=== PATIENT | male | born 1995 | race American Indian/Alaskan Native ===

== ENCOUNTER 2020-11-09 20:17 | Emergency (ER) | payer SELFPAY ==
[2020-11-09] MEDS ORDERED: IBUPROFEN 600 MG TAB PO ONE (22:20)
[2020-11-09] MEDS ORDERED: ACETAMINOPHEN 325 MG TAB PO ONE (22:20)
--- NOTE | 2020-11-09 22:48 | Emergency Department Report ---
- General Chief Complaint: Weakness Stated Complaint: FREQUENT BODY TEMP CHANGE HOT TO COLD Time Seen by Provider: 11/09/20 22:11 Source: patient Mode of arrival: Ambulatory Limitations: No Limitations - History of Present Illness Initial Comments: 25-year-old male who reports no significant past medical history presents to the ER today complaining of flulike/Covid-like symptoms. Patient states that his symptoms started about a day ago. He reports chills, subjective fever, generalized body aches and intermittent cough as well as intermittent wheezing. He denies any shortness of breath, chest pain, runny nose, nasal congestion, sore throat, vomiting, diarrhea, abdominal pain or UTI symptoms. He denies any known ill contacts or known COVID-19 contacts. He has not gotten a COVID 19 test since he has been sick. He did not get COVID 19 vaccine. Complaint: cough, other (Generalized body aches, chills, subjective fever) -: Gradual, days(s) (1) - Related Data Previous Rx's Medication Instructions Recorded Last Taken Type Ibuprofen [Motrin] 800 mg PO Q8HR PRN #30 tablet 11/09/20 Unknown Rx Allergies Allergy/AdvReac Type Severity Reaction Status Date / Time No Known Allergies Allergy Verified 11/09/20 21:49 ED Review of Systems ROS: Stated complaint: FREQUENT BODY TEMP CHANGE HOT TO COLD Other details as noted in HPI Comment: All other systems reviewed and negative Constitutional: chills, fever ENT: denies: throat pain, dental pain, hearing loss, epistaxis, congestion Respiratory: cough, wheezing. denies: shortness of breath, SOB with exertion, SOB at rest Cardiovascular: denies: chest pain, palpitations Endocrine: no symptoms reported Gastrointestinal: denies: abdominal pain, nausea, diarrhea, constipation, hematemesis, melena, hematochezia Genitourinary: denies: urgency, dysuria, frequency, hematuria, discharge, testicular pain, testicular mass Musculoskeletal: denies: back pain, joint swelling, arthralgia Skin: denies: rash, lesions, change in color, change in hair/nails, pruritus Neurological: denies: headache, weakness, numbness, paresthesias, confusion, abnormal gait, vertigo Psychiatric: denies: anxiety, depression, auditory hallucinations, visual hallucinations, homicidal thoughts, suicidal thoughts Hematological/Lymphatic: denies: easy bleeding, swollen glands ED Past Medical Hx - Past Medical History Previous Medical History?: No - Medications Home Medications: Home Medications Medication Instructions Recorded Confirmed Last Taken Type Ibuprofen [Motrin] 800 mg PO Q8HR PRN #30 tablet 11/09/20 Unknown Rx ED Physical Exam - General Limitations: No Limitations General appearance: alert, in no apparent distress, obese - Head Head exam: Present: atraumatic, normocephalic - Eye Eye exam: Present: normal appearance, PERRL, EOMI Pupils: Present: normal accommodation - ENT ENT exam: Present: normal exam, mucous membranes moist, TM's normal bilaterally - Neck Neck exam: Present: normal inspection, full ROM. Absent: meningismus - Respiratory Respiratory exam: Present: normal lung sounds bilaterally. Absent: respiratory distress, wheezes, rales, rhonchi - Cardiovascular Cardiovascular Exam: Present: regular rate, normal rhythm, normal heart sounds - Neurological Exam Neurological exam: Present: alert, oriented X3, CN II-XII intact, normal gait - Psychiatric Psychiatric exam: Present: normal affect, normal mood - Skin Skin exam: Present: intact ED Course Vital Signs 11/09/20 11/10/20 11/10/20 21:48 00:23 00:33 Temperature 100.4 F H 98.6 F Pulse Rate 108 H 102 H Respiratory 18 19 Rate Blood Pressure 150/82 117/73 O2 Sat by Pulse 99 91 Oximetry ED Medical Decision Making - Radiology Data Radiology results: report reviewed Patient: GABRIELA CONNORS MR#: [id number] : 1995 Acct:[id number] Age/Sex: 25 / M ADM Date: 11/09/20 Loc: ED Attending Dr: Ordering Physician: HÉCTOR PENALOZA Date of Service: 11/09/20 Procedure(s): XR chest routine 2V Accession Number(s): [id number] cc: HÉCTOR PENALOZA Fluoro Time In Minutes: CHEST PA AND LATERAL VIEWS INDICATION: wheezing/fever. COMPARISON: None. FINDINGS: Support devices: None. Heart: Within normal limits. Lungs/Pleura: No acute pulmonary or pleural findings. IMPRESSION: 1. No acute findings. Signer Name: Rosendo Mckeon MD Signed: 11/09/2020 11:03 PM Workstation Name: [id number] Transcribed By: MOY Dictated By: Rosendo Mckeon MD Electronically Authenticated By: Rosendo Mckeon MD Signed Date/Time: 11/09/202302 DD/ 02 TD/TT: - Medical Decision Making 25-year-old male who reports no significant past medical history presents to the ER today complaining of flulike/Covid-like symptoms. Patient states that his symptoms started about a day ago. He reports chills, subjective fever, generalized body aches and intermittent cough as well as intermittent wheezing. He denies any shortness of breath, chest pain, runny nose, nasal congestion, sore throat, vomiting, diarrhea, abdominal pain or UTI symptoms. He denies any known ill contacts or known COVID-19 contacts. He has not gotten a COVID 19 test since he has been sick. He did not get COVID 19 vaccine. Patient is not toxic or ill appearing. He is not in any pain or respiratory distress. He is hydrated and neurologically intact. His vital signs show improvement of HR and temp after oral tylenol and motrin. Pt is not hypoxic. cxr shows nothing acute. Discussed xray results with patient. Informed him that his symptoms likely related to viral illness and recommend he gets an outpatient COVID test. At this time this is no indication for any additional testing or admission. His history, exam, diagnostic testing and current condition do not demonstrate an infectious process such as meningitis, severe pneumonia, acute respiratory distress with hypoxia, sepsis or other serious viral/bacterial infection requiring further testing, treatment, consultation or admission at this time. Patient expressed understanding of all instructions and agreed with plan. Pt was stable at time of discharge. Critical care attestation.: If time is entered above; I have spent that time in minutes in the direct care of this critically ill patient, excluding procedure time. ED Disposition Clinical Impression: Viral illness Disposition: 01 HOME / SELF CARE / HOMELESS Is pt being admited?: No Does the pt Need Aspirin: No Condition: Stable Instructions: Viral Illness, Adult Additional Instructions: I recommend taking motrin as needed for pain or fever. I do recommend that you get a outpatient COVID 19 test. I do recommend that you quarantine until you get the results of your test. Drink lots of fluids. Take a daily multivitamin which contains vit C, zinc and vitamin D. You can take over the counter cough cold medications if needed. Follow up with PCP. Return to ED if worse. Prescriptions: Ibuprofen [Motrin] 800 mg PO Q8HR PRN #30 tablet PRN Reason: pain Referrals: PRIMARY CARE, [Primary Care Provider] - 3-5 Days Forms: Work/School Release Form(ED) Time of Disposition: 23:55
--- NOTE | 2020-11-09 23:07 | XRay Report ---
CHEST PA AND LATERAL VIEWS INDICATION: wheezing/fever. COMPARISON: None. FINDINGS: Support devices: None. Heart: Within normal limits. Lungs/Pleura: No acute pulmonary or pleural findings. IMPRESSION: 1. No acute findings. Signer Name: Rosendo Mckeon MD Signed: 11/09/2020 11:03 PM Workstation Name: [id number]
[2020-11-10 00:34] VITALS: BP 117/73
== END 2020-11-10 00:34 | disposition home or self-care (01) ==
LOC: ED 20:17
DX: B34.9 Viral infection, unspecified (principal)
CPT/HCPCS: 71046; 99283

== ENCOUNTER 2020-11-13 17:10 | Emergency (ER) | payer SELFPAY | END 2020-11-13 18:10 | disposition left against medical advice (07) | LOC: ED 17:10 | DX: R50.9 Fever, unspecified (principal); Z53.21 Procedure and treatment not carried out due to patient leaving prior to being seen by health care provider ==